=== PATIENT | female | born 2000 | race Caucasian/White ===

== ENCOUNTER → 2020-06-07 | Outpatient (CLI) | payer BC ==
[~2020-06-07] MED LIST: DEMULEN 1-35-21 EACH PO
== END ==
LOC: LAB 08:37
PROVIDERS: ATTEND Orthopaedic Surgery Sports Medicine
DX: Z01.812 Encounter for preprocedural laboratory examination (principal); Z20.822 Contact with and (suspected) exposure to COVID-19

== ENCOUNTER 2020-06-12 06:06 | Day surgery (SDC) | payer BC, OTHER ==
[~2020-06-12] VITALS: Ht 162.6 cm; Wt 54.9 kg
[2020-06-12 06:35] VITALS: BP 141/85
[2020-06-12 08:13] VITALS: BP 141/85
--- NOTE | 2020-06-12 13:13 | O ---
[address] [address] OPERATIVE REPORT Name: MALVIN BEAN Room #: [facility]P [facility].#: [id number] Admission: 06/12/20 Attend Phys: Baltazar Case MD Discharge: 06/12/20 Date of : 89 Report #: [id number] THIS REPORT FOR: cc: FAM - No family physician/PCP FAM - Family physician unknown Baltazar Case MD ~ DATE OF SERVICE: 06/12/2020 SERVICE: Orthopedics. FACILITY: [facility]. SURGEON: Baltazar Case MD ORDNANCE OFFICER: Katheirn Brandon NP. PREOPERATIVE DIAGNOSES: 1. Right knee pain. 2. Right knee medial plica syndrome. POSTOPERATIVE DIAGNOSES: 1. Right knee pain. 2. Right knee medial plica syndrome. 3. Right knee lateral tibial plateau chondromalacia. PROCEDURE: Right knee arthroscopy with plica excision. COMPLICATIONS: None. DRAINS: None. SPECIMENS: None. ANESTHESIA: General. FINDINGS: 1. Large thickened medial plica resected. 2. Intact patellofemoral cartilage, ACL, PCL and medial compartment. The lateral meniscus was intact as well. 3. Focal area of grade 2 chondromalacia of the central portion of the lateral tibial plateau measuring approximately 8 x 8 mm, this was stable and did not require any intervention. 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 She had failed conservative [address] [place] [address] OPERATIVE REPORT Name: MALVIN BEAN Room #: DEP [facility].#: [id number] Admission: 06/12/20 Attend Phys: Baltazar Case MD Discharge: 06/12/20 Date of : 89 Report #: [id number] measures. She had an exam and imaging consistent with a symptomatic plica syndrome and she was indicated for surgical treatment after risks, benefits, alternatives, and indication of surgery discussed with her in detail. Risks include but not limited to pain, bleeding, infection, injury to nerves or blood vessels, persistent pain despite surgical intervention, failure of any repairs, progression of preexisting chondral injury, stiffness, need for further surgery as well as complications related to anesthesia. Despite the risks, she wished to proceed. PROCEDURE IN DETAIL: After right lower extremity was correctly identified in the preoperative holding as operative extremity, the patient was taken to the operating room where general anesthesia with LMA was induced without complications. She was padded appropriately. Prophylactic antibiotics were administered at appropriate time. Tourniquet was applied to right leg. Right lower extremity was then prepped and draped in standard sterile fashion. Timeout procedure performed. Esmarch was used. Tourniquet inflated to 250 mmHg. Standard anterolateral viewing portal was established followed by anteromedial working portal. Diagnostic arthroscopy revealed the above findings. We immediately encountered the plica, which extended along the medial aspect of the medial femoral condyle. There has not been any obvious trauma to the medial femoral condyle articular cartilage and the medial compartment was normal with the cruciates were intact and then the leg was placed into the [id number] position to allow visualization of the lateral compartment, the lateral articular cartilage of the femoral condyle was intact as was the lateral meniscus; however, there was a lesion in the central portion of the lateral tibial plateau. There were no loose flaps of cartilage in this area. No chondroplasty was required. The knee was placed into extension. A biter and shaver were then used to resect the plica, which extended from the medial retinaculum all the way across the inferior pole of the patella and then contacted with the retropatellar fat pad to resect all of this tissue in order to eliminate the pathologic process in the patellofemoral articulation. This was completed, the arthroscopic effusion was drained, instruments were removed. Portal sites were closed. Sterile dressing was applied. The patient was awakened from anesthesia and taken to recovery room in stable condition. No complications. All counts were recorded as correct. She was placed in a thigh-high compression stocking as well. <ELECTRONICALLY SIGNED> By: Baltazar Case MD 06/12/20 1313 [id number] Baltazar Case MD /nt
== END 2020-06-12 09:15 | disposition home or self-care (01) ==
LOC: OR → TBA 06:07 → OR 08:39
PROVIDERS: ATTEND Orthopaedic Surgery Sports Medicine
DX: M25.561 Pain in right knee (principal); M67.51 Plica syndrome, right knee; M94.261 Chondromalacia, right knee
CPT/HCPCS: 50010; 50101; 50405; 56527; 57103; 57180; 62110; 62900; 70005